=== PATIENT | female | born 1975 | race American Indian/Alaskan Native ===

== ENCOUNTER 2018-11-03 21:03 | Emergency (ER) | payer OTHER ==
[2018-11-03 21:09] VITALS: BP 124/91
--- NOTE | 2018-11-03 21:12 | Emergency Department Report ---
Blank Doc - Documentation Documentation: This is a 43-year-old female that presents with left eye pain. Denies any tra matthew or injuries. Denies any visual changes. Denies any flouters. Denies foreign body. Stated took blood pressure and was high today around 188/97. Denies any headache. exam: neuro exam normal. no facial drooping. no one sided weakness. This initial assessment/diagnostic orders/clinical plan/treatment(s) is/are subject to change based on patient's health status, clinical progression and re- assessment by fellow clinical providers in the ED. Further treatment and workup at subsequent clinical providers discretion. Patient/guardians urged not to elope from the ED as their condition may be serious if not clinically assessed and managed. Initial orders include: 1- Patient sent to [facility] for further evaluation and treatment 2- CT head/orbit
--- NOTE | 2018-11-03 22:36 | Cat Scan Report ---
PROCEDURE: CT HEAD/BRAIN WO CON TECHNIQUE: Computerized tomography of the head was performed without contrast material. CT DOSE LENGTH PRODUCT: 920.5 mGycm HISTORY: headache with left eye pain COMPARISONS: None . FINDINGS: Skull and scalp: Normal . Paranasal sinuses: Normal . Ventricles and subarachnoid spaces: Normal . Cerebrum: No evidence of hemorrhage, acute infarction or mass . Cerebellum and brainstem: No evidence of hemorrhage, acute infarction or mass . Vasculature: Normal . Other: None . ASPECTS: 10 IMPRESSION: Normal Examination . This document is electronically signed by Jaime Mckinney MD., November 03 2018 10:34:55 PM ET
--- NOTE | 2018-11-03 22:46 | Cat Scan Report ---
PROCEDURE: CT ORBIT/EAR/FOSSA WO CON TECHNIQUE: Computerized axial tomography of the orbits was performed without contrast material. Auto mated exposure control, adjustment of mA and/or kV according to patient size, or iterative reconstruc tion dose optimization techniques were utilized. CT DOSE LENGTH PRODUCT: 331 mGycm HISTORY: headache with left eye pain COMPARISONS: None FINDINGS: Bones and sinuses: Normal Globes: Normal Extraocular muscles: Normal Optic nerves: Normal Lacrimal glands: Normal IMPRESSION: Normal Examination This document is electronically signed by Jaime Mckinney MD., November 03 2018 10:43:41 PM ET
--- NOTE | 2018-11-04 00:20 | Emergency Department Report ---
ED General Adult HPI - General Chief complaint: Eye Problems Stated complaint: HBP/L EYE PAIN/LOW IRON Time Seen by Provider: 11/03/18 21:09 Source: patient Mode of arrival: Ambulatory Limitations: No Limitations - History of Present Illness Initial comments: 43-year-old female with past medical history of anemia and stress-related myocardial infarction in 2010 presents to emergency department complaining of developing left throbbing pain appeared to radiate from behind and radiate to the left side of her head associated with a isolated blood pressure 180 unknown number of someone at her job. She was advised to come to the ER for further evaluation and treatment recommendations. 6. About one to 2 hours prior to arrival and lasted for about 15 minutes before resolving has a dull headache but no eye pain, no nausea, vomiting or neck pain. No fevers, chills, sweats. Radiation: non-radiation Severity scale (0 -10): 5 Quality: aching, dull Consistency: constant Improves with: none Worsens with: none Associated Symptoms: headaches, malaise. denies: chest pain, cough, diaphoresis, fever/chills, nausea/vomiting, rash, seizure, shortness of breath, weakness - Related Data Previous Rx's Medication Instructions Recorded Last Taken Type Desloratadine [Clarinex] 5 mg PO DAILY #14 tablet 11/04/18 Unknown Rx Mometasone Furoate [Nasonex] 2 spray NS QDAY #1 bottle 11/04/18 Unknown Rx predniSONE [Deltasone] 20 mg PO QDAY #5 tab 11/04/18 Unknown Rx Allergies Allergy/AdvReac Type Severity Reaction Status Date / Time No Known Allergies Allergy Unverified 11/03/18 21:15 ED Review of Systems ROS: Stated complaint: HBP/L EYE PAIN/LOW IRON Other details as noted in HPI Constitutional: denies: chills, fever Eyes: denies: eye pain, eye discharge, vision change ENT: denies: ear pain, throat pain Respiratory: denies: cough, shortness of breath, wheezing Cardiovascular: denies: chest pain, palpitations Endocrine: no symptoms reported Gastrointestinal: denies: abdominal pain, nausea, diarrhea Genitourinary: denies: urgency, dysuria, discharge Musculoskeletal: denies: back pain, joint swelling, arthralgia Skin: denies: rash, lesions Neurological: denies: headache, weakness, paresthesias Psychiatric: denies: anxiety, depression Hematological/Lymphatic: denies: easy bleeding, easy bruising ED Past Medical Hx - Past Medical History Previous Medical History?: Yes Additional medical history: Anemia - Surgical History Past Surgical History?: Yes Additional Surgical History: , Tubal Ligation - Social History Smoking Status: Current Every Day Smoker Substance Use Type: None - Medications Home Medications: Home Medications Medication Instructions Recorded Confirmed Last Taken Type Desloratadine [Clarinex] 5 mg PO DAILY #14 tablet 11/04/18 Unknown Rx Mometasone Furoate [Nasonex] 2 spray NS QDAY #1 bottle 11/04/18 Unknown Rx predniSONE [Deltasone] 20 mg PO QDAY #5 tab 11/04/18 Unknown Rx ED Physical Exam - General Limitations: No Limitations General appearance: alert, in no apparent distress - Head Head exam: Present: atraumatic, normocephalic, normal inspection - Eye Eye exam: Present: normal appearance, PERRL, EOMI, other (funduscopic examination negative,) Pupils: Present: normal accommodation - ENT ENT exam: Present: normal exam, mucous membranes moist, TM's normal bilaterally (small effusion behind left tympanic membrane), other (bilateral sinus congestio n with swollen nasal turbinates. There is tenderness to percussion to the ethmoid sinuses.). Absent: normal orophraynx, mucous membranes dry - Neck Neck exam: Present: normal inspection, full ROM - Respiratory Respiratory exam: Present: normal lung sounds bilaterally, chest wall tenderness. Absent: respiratory distress, wheezes, rales, rhonchi, accessory muscle use, decreased breath sounds - Cardiovascular Cardiovascular Exam: Present: regular rate, normal rhythm. Absent: bradycardia, tachycardia, systolic murmur, diastolic murmur, rubs, gallop - GI/Abdominal GI/Abdominal exam: Present: soft, normal bowel sounds. Absent: tenderness, guarding, hyperactive bowel sounds, hypoactive bowel sounds, organomegaly, pulsatile mass - Extremities Exam Extremities exam: Present: normal inspection - Back Exam Back exam: Present: normal inspection - Neurological Exam Neurological exam: Present: alert, oriented X3, CN II-XII intact, normal gait - Psychiatric Psychiatric exam: Present: normal affect, normal mood - Skin Skin exam: Present: warm, dry, intact, normal color. Absent: rash ED Course Vital Signs 04/25/19 21:08 Temperature 97.9 F Pulse Rate 82 Respiratory 16 Rate Blood Pressure 124/91 O2 Sat by Pulse 100 Oximetry Critical care attestation.: If time is entered above; I have spent that time in minutes in the direct care of this critically ill patient, excluding procedure time. ED Disposition Clinical Impression: Nasal congestion, Cephalgia Disposition: DC-01 TO HOME OR SELFCARE Is pt being admited?: No Does the pt Need Aspirin: No Condition: Stable Instructions: Allergic Rhinitis (ED), Pseudoephedrine (By mouth), Antitussive/Decongestant (By mouth), Acute Headache (ED)
== END 2018-11-04 00:34 | disposition home or self-care (01) ==
LOC: ED 21:03
DX: R51 Headache (principal); R09.81 Nasal congestion; F17.200 Nicotine dependence, unspecified, uncomplicated; R03.0 Elevated blood-pressure reading, without diagnosis of hypertension
CPT/HCPCS: 70450; 70480

== ENCOUNTER 2022-03-05 00:55 | Emergency (ER) | payer SELFPAY ==
--- NOTE | 2022-03-05 09:57 | Electrocardiograph Report ---
[facility] Test Date: 2022-03-05 Test Time: 01:02:47 Pat Name: YUKI POWELL Department: Room: Gender: F Show Worker: JESU : 1975 Requested By: ED DOC Order Number: [id number] Reading MD: Dave Smith Measurements Intervals [place] Rate: 99 P: 68 FL: 153 QRS: 70 QRSD: 131 T: 16 QT: 401 QTc: 516 Interpretive Statements Sinus rhythm Right bundle branch block No previous ECG available for comparison Electronically Signed On 03-05-2022 9:57:17 EDT by Dave Smith
[2022-03-05] MEDS ORDERED: ACETAMINOPHEN 325 MG TAB PO ONE (10:35)
[2022-03-05] MEDS ORDERED: ASPIRIN 81 MG TAB CHEW PO ONE (10:35)
[2022-03-05] MEDS ORDERED: BENZONATATE 100 MG CAP PO ONE (10:36)
--- NOTE | 2022-03-05 10:40 | Emergency Department Report ---
ED General Adult HPI - General Chief complaint: Chest Pain Stated complaint: CHEST PAIN/MIGRAINE PUI?: No Time Seen by Provider: 03/05/22 10:32 Source: patient Mode of arrival: Ambulatory Limitations: No Limitations - History of Present Illness Initial comments: This is a 47-year-old female with medical history of hyperlipidemia and also myocardial infarction in the past but patient said that she never had heart stent. Patient denies diabetes or hypertension. Patient said that she has been a smoker for the past 10 years about 1 packs/day and also she does have a family history of myocardial infarction less than 65 years old. Patient came in today with concerns of coughing for the past 4 days which according to the patient is a dry hacking cough that is nonproductive. Patient did note that yesterday she started having headache that is not photophobic or photo phobia and chest discomfort. According to patient the chest pain started yesterday that is more of an aching sharp localized in the substernal area that is only worse with coughing such as movement. Patient denies any other symptoms. Patient denies fever chill night sweat dizziness blurred vision lightheadedness headache tinnitus ear pain runny nose sore throat loss of taste loss of smell palpitation short of breath abdominal pain nausea vomiting diarrhea constipation joint pain muscle pain new rash and heat or cold intolerance. - Related Data Previous Rx's Medication Instructions Recorded Last Taken Type Desloratadine [Clarinex] 5 mg PO DAILY #14 tablet 11/04/18 Unknown Rx Mometasone Furoate [Nasonex] 2 spray NS QDAY #1 bottle 11/04/18 Unknown Rx predniSONE [Deltasone] 20 mg PO QDAY #5 tab 11/04/18 Unknown Rx Benzonatate [Tessalon Perles] 100 mg PO Q8HR 3 Days #12 cap 03/05/22 Unknown Rx Allergies Allergy/AdvReac Type Severity Reaction Status Date / Time No Known Allergies Allergy Unverified 11/03/18 21:15 ED Review of Systems ROS: Stated complaint: CHEST PAIN/MIGRAINE Other details as noted in HPI Comment: All other systems reviewed and negative Constitutional: no symptoms reported Eyes: as per HPI ENT: as per HPI Respiratory: no symptoms reported, cough. denies: shortness of breath Cardiovascular: chest pain. denies: palpitations Endocrine: no symptoms reported Gastrointestinal: as per HPI Musculoskeletal: as per HPI Skin: as per HPI Neurological: as per HPI Psychiatric: as per HPI Hematological/Lymphatic: as per HPI ED Past Medical Hx - Past Medical History Previous Medical History?: Yes Hx Heart Attack/AMI: Yes Additional medical history: Anemia - Surgical History Additional Surgical History: , Tubal Ligation - Social History Smoking Status: Current Every Day Smoker Substance Use Type: None - Medications Home Medications: Home Medications Medication Instructions Recorded Confirmed Last Taken Type Desloratadine [Clarinex] 5 mg PO DAILY #14 tablet 11/04/18 Unknown Rx Mometasone Furoate [Nasonex] 2 spray NS QDAY #1 bottle 11/04/18 Unknown Rx predniSONE [Deltasone] 20 mg PO QDAY #5 tab 11/04/18 Unknown Rx Benzonatate [Tessalon Perles] 100 mg PO Q8HR 3 Days #12 cap 03/05/22 Unknown Rx ED Physical Exam - General Limitations: No Limitations General appearance: alert, in no apparent distress - Head Head exam: Present: atraumatic, normocephalic, normal inspection - Eye Eye exam: Present: normal appearance, PERRL, EOMI Pupils: Present: normal accommodation - ENT ENT exam: Present: normal exam, normal orophraynx, mucous membranes moist - Neck Neck exam: Present: normal inspection, full ROM - Respiratory Respiratory exam: Present: normal lung sounds bilaterally, chest wall tenderness, other (DRY HACKING COUGH) - Cardiovascular Cardiovascular Exam: Present: regular rate, normal rhythm, normal heart sounds - GI/Abdominal GI/Abdominal exam: Present: soft - Extremities Exam Extremities exam: Present: normal inspection, full ROM, normal capillary refill - Back Exam Back exam: Present: normal inspection, full ROM - Neurological Exam Neurological exam: Present: alert, oriented X3, CN II-XII intact - Psychiatric Psychiatric exam: Present: normal affect, normal mood - Skin Skin exam: Present: normal color ED Course Vital Signs 03/05/22 03/05/22 03/05/22 00:59 10:06 10:15 Temperature 98.1 F Pulse Rate 105 H 80 77 Respiratory 18 13 18 Rate Blood Pressure 169/110 159/81 O2 Sat by Pulse 95 100 100 Oximetry 03/05/22 03/05/22 03/05/22 10:31 10:45 11:07 Temperature Pulse Rate 76 74 Respiratory 13 19 20 Rate Blood Pressure 169/92 156/85 O2 Sat by Pulse 100 99 100 Oximetry - Reevaluation(s) Reevaluation #1: 03/05/22 10:41 EKG at 0102 THIS MORNING WITH SINUS RHYTHM AT 99 BPM; NO ST ELEVATION OR DEPRESSION. NO WELLEN WAVE. RBBB. 03/05/22 12:43 WILL OBTAIN DETLA TROPONIN BEFORE D/C ED Medical Decision Making - Lab Data Result diagrams: 03/05/22 10:59 03/05/22 10:59 - Medical Decision Making DELTA TROPONIN NEGATIAVE. Critical care attestation.: If time is entered above; I have spent that time in minutes in the direct care of this critically ill patient, excluding procedure time. ED Disposition Clinical Impression: Non-cardiac chest pain, Bronchitis, Headache Disposition: 01 HOME / SELF CARE / HOMELESS Is pt being admited?: No Does the pt Need Aspirin: No Condition: Stable Instructions: Nonspecific Chest Pain, Adult, Chronic Bronchitis (ED), Chest Wall Pain Additional Instructions: Make a follow-up appointment with your primary care provider to be seen within 3 days for further outpatient evaluation with possible stress test. Your work-up in the emergency room was unremarkable. Prescriptions: Benzonatate [Tessalon Perles] 100 mg PO Q8HR 3 Days #12 cap Time of Disposition: 14:23
--- NOTE | 2022-03-05 11:07 | XRay Report ---
. XR chest 1V ap INDICATION / CLINICAL INFORMATION: chest pain. COMPARISON: None available. FINDINGS: SUPPORT DEVICES: None. HEART /PULMONARY VASCULATURE: No significant abnormality. LUNGS / PLEURA: No significant pulmonary or pleural abnormality. No pneumothorax. ADDITIONAL FINDINGS: No significant additional findings. IMPRESSION: 1. No acute findings. Signer Name: Amaury Sorenson MD Signed: 03/05/2022 11:03 AM Workstation Name: [id number]
[2022-03-05 11:34] LABS: Hematocrit 40.5 % (30.3-42.9); Mean Corpuscular HGB Conc 32 % (30-34); Mean Corpuscular Volume 83 fl (79-97); Platelet Count 216 K/mm3 (140-440); Red Blood Count 4.87 M/mm3 (3.65-5.03); Red Cell Distribution Width 15.7 % (13.2-15.2)
[2022-03-05 11:58] LABS: Creatine Kinase MB 3.6 ng/mL (0.0-4.0)
[2022-03-05 11:59] LABS: Alanine Aminotransferase 22 units/L (7-56); BUN/Creatinine Ratio 12; Blood Urea Nitrogen 11 mg/dL (7-17); Hemolysis Index 1
[2022-03-05 14:03] LABS: Bacteria,Urine 1+ /HPF (Negative); Hyaline Casts,Urine 1 /LPF; Mucus,Urine 3+ /HPF
[2022-03-05 14:14] LABS: Color,Urine Yellow (Yellow)
[2022-03-05 14:29] VITALS: BP 133/75
== END 2022-03-05 14:35 | disposition home or self-care (01) ==
LOC: ED 00:55
DX: R07.89 Other chest pain (principal); J40 Bronchitis, not specified as acute or chronic; R51.9 Headache, unspecified; F17.200 Nicotine dependence, unspecified, uncomplicated; F17.210 Nicotine dependence, cigarettes, uncomplicated; Z98.51 Tubal ligation status; Z79.899 Other long term (current) drug therapy; Z98.890 Other specified postprocedural states
CPT/HCPCS: 36415; 71045; 80053; 81001; 82550; 82553; 83735; 84484; 85027; 87086; 93005; 99284